=== PATIENT | female | born 1990 | race African-American/Black ===

== ENCOUNTER 2021-04-13 17:10 | Emergency (ER) | payer OTHER, SELFPAY ==
[2021-04-13] MEDS ORDERED: Ketorolac Tromethamine 30 MG/ML VIAL ONE (19:15)
[2021-04-13 19:19] LABS: #Eosinphils 0.1 10x3/uL (0.0-0.5); #Monocytes 0.9 10x3/uL (0.0-1.1); #Neutrophils 11.3 10x3/uL (1.5-8.4); %Basophils 0.2 % (0.0-2.0); %Eosinophils 0.5 % (0.0-6.0); %Lymphocytes 6.9 % (18.0-47.0); %Monocytes 6.9 % (0.0-10.0); %Neutrophils 85.1 % (40.0-75.0); Hemoglobin 11.1 g/dL (12.0-15.5); Mean Corpuscular HGB CONC 32.6 g/dL (32.0-36.0); Mean Corpuscular Hemoglobin 25.6 pg (27.0-33.0); Mean Corpuscular Volume 78.5 fl (81.6-98.3); Mean Platelet Volume 8.9 fl (7.4-10.4); Platelet Count 372 10x3/uL (150-450); Red Blood Cell (RBC) Count 4.33 10x6/uL (3.90-5.03); White Blood Cell (WBC) Count 13.3 10x3/uL (3.5-10.5)
[2021-04-13 19:31] LABS: BHCG - Serum Negative (NEGATIVE); Pregs Control Background? CLEAR/WHITE (CLR/WHITE); Pregs Control Bar Appear? YES (CONTROL BAR)
[2021-04-13 19:37] LABS: ALT (SGPT) 6 U/L (8-55); AST (SGOT) 16 U/L (5-34); Albumin 4.5 g/dL (3.5-5.0); Alkaline Phosphatase 53 U/L (40-110); Anion Gap 13 mmol/L (10-20); BUN (Urea Nitrogen) 6 mg/dL (7.0-18.7); Bilirubin, Total 0.4 mg/dL (0.2-1.2); Calc. Creatinine Clearance 0 mL/min (70-130); Calcium 9.3 mg/dL (7.8-10.44); Carbon Dioxide 22 mmol/L (22-29); Chloride 106 mmol/L (98-107); Glucose 99 mg/dL (70-105); Potassium 3.7 mmol/L (3.5-5.1); Protein, Total 8.5 g/dL (6.0-8.3); Sodium 137 mmol/L (136-145)
[2021-04-13] MEDS ORDERED: Magnesium Citrate 300 ML BOT ONE (20:40)
[2021-04-13] MEDS ORDERED: Fentanyl 100 MCG/2 ML VIAL ONE (22:12)
[2021-04-13] MEDS ORDERED: Midazolam HCl 2 mg/2 ml Vial ONE (22:52)
== END 2021-04-13 23:37 | disposition home or self-care (01) ==
LOC: CSHERS 17:10
DX: K59.00 Constipation, unspecified (principal)
CPT/HCPCS: 51701; 74177; 80053; 84703; 85025; 96374; 96375; J1885; J2250; J3010

== ENCOUNTER 2021-06-11 18:13 | Inpatient (IN) | payer SELFPAY ==
[2021-06-11 19:39] LABS: #Eosinphils 0.4 10x3/uL (0.0-0.5); #Monocytes 0.7 10x3/uL (0.0-1.1); #Neutrophils 3.4 10x3/uL (1.5-8.4); %Basophils 0.3 % (0.0-2.0); %Eosinophils 5.8 % (0.0-6.0); %Lymphocytes 32.6 % (18.0-47.0); %Neutrophils 51.2 % (40.0-75.0); Hemoglobin 11.4 g/dL (12.0-15.5); Mean Corpuscular HGB CONC 33.3 g/dL (32.0-36.0); Mean Corpuscular Hemoglobin 25.5 pg (27.0-33.0); Mean Corpuscular Volume 76.5 fl (81.6-98.3); Mean Platelet Volume 8.7 fl (7.4-10.4); Platelet Count 395 10x3/uL (150-450); RBC Distribution Width 17.1 % (11.5-14.5); Red Blood Cell (RBC) Count 4.47 10x6/uL (3.90-5.03); White Blood Cell (WBC) Count 6.7 10x3/uL (3.5-10.5)
[2021-06-11 19:53] LABS: BHCG - Serum Negative (NEGATIVE); Pregs Control Background? CLEAR/WHITE (CLR/WHITE); Pregs Control Bar Appear? YES (CONTROL BAR)
[2021-06-11 20:00] LABS: ALT (SGPT) 7 U/L (8-55); AST (SGOT) 14 U/L (5-34); Albumin 4.2 g/dL (3.5-5.0); Alkaline Phosphatase 53 U/L (40-110); Anion Gap 13 mmol/L (10-20); BUN (Urea Nitrogen) 6 mg/dL (7.0-18.7); Bilirubin, Total 0.3 mg/dL (0.2-1.2); Calc. Creatinine Clearance 0 mL/min (70-130); Calcium 8.9 mg/dL (7.8-10.44); Carbon Dioxide 22 mmol/L (22-29); Chloride 106 mmol/L (98-107); Globulin 3.8 g/dL (2.4-3.5); Glucose 93 mg/dL (70-105); Lipase 23 U/L (8-78); Potassium 3.3 mmol/L (3.5-5.1); Sodium 138 mmol/L (136-145)
[2021-06-11] MEDS ORDERED: GoLYTELY 4,000 ml Bottle PO SCH (21:15)
[2021-06-11] MEDS ORDERED: Fentanyl 100 MCG/2 ML VIAL ONE (21:24)
[2021-06-11] MEDS ORDERED: Ondansetron ODT 4 MG TAB ONE (23:17)
[2021-06-12 00:31] VITALS: BMI 23.4
[2021-06-12] MEDS ORDERED: Ondansetron PF 4 MG/2 ML Vial IVP PRN (00:48)
[2021-06-12 01:35] LABS: Magnesium 1.8 mg/dL (1.6-2.6)
[2021-06-12] MEDS: NS 0.9% w/ 40 MEQ KCL 1,000 ML IV SCH ×2 (02:10→19:48)
[2021-06-12] MEDS: Enoxaparin Sodium 40 MG/0.4 ML SYRINGE SC SCH (09:21)
[2021-06-12 11:52] LABS: #Eosinphils 0.4 10x3/uL (0.0-0.5); #Monocytes 0.5 10x3/uL (0.0-1.1); %Basophils 0.5 % (0.0-2.0); %Eosinophils 8.3 % (0.0-6.0); %Lymphocytes 31.4 % (18.0-47.0); %Monocytes 11.6 % (0.0-10.0); Mean Corpuscular HGB CONC 33.1 g/dL (32.0-36.0); Mean Corpuscular Hemoglobin 25.6 pg (27.0-33.0); Mean Corpuscular Volume 77.4 fl (81.6-98.3); Mean Platelet Volume 8.6 fl (7.4-10.4); Platelet Count 366 10x3/uL (150-450); RBC Distribution Width 17.2 % (11.5-14.5); White Blood Cell (WBC) Count 4.2 10x3/uL (3.5-10.5)
[2021-06-12 11:55] LABS: %Neutrophils 48.2 % (40.0-75.0)
[2021-06-12 12:10] LABS: Anion Gap 12 mmol/L (10-20); BUN (Urea Nitrogen) 4 mg/dL (7.0-18.7); Calc. Creatinine Clearance 104 mL/min (70-130); Calcium 8.5 mg/dL (7.8-10.44); Carbon Dioxide 19 mmol/L (22-29); Chloride 113 mmol/L (98-107); Glucose 91 mg/dL (70-105); Potassium 4.2 mmol/L (3.5-5.1); Sodium 140 mmol/L (136-145)
[2021-06-12] MEDS: Lactated Ringer's 1,000 ML IV SCH (18:57)
[2021-06-13] MEDS: Lactated Ringer's 1,000 ML IV SCH ×3 (02:58→16:04)
[2021-06-13 08:12] LABS: SARS-CoV-2 NAA Rapid Test Not Detected (NotDetected)
[2021-06-13] MEDS: Enoxaparin Sodium 40 MG/0.4 ML SYRINGE SC SCH (09:37)
[2021-06-13] MEDS ORDERED: PROPOFOL 60 ML ONE (12:18)
[2021-06-13] MEDS ORDERED: Midazolam HCl 2 mg/2 ml Vial ONE (12:18)
[2021-06-13] MEDS ORDERED: Fleet Enema 133 ML BOT FS SCH (12:45)
[2021-06-13] MEDS ORDERED: PROPOFOL 20 ML ONE (12:56)
[2021-06-13] MEDS ORDERED: Polyethylene Glycol 3350 17 GM Packet PO SCH (15:00)
[2021-06-13 16:47] VITALS: BP 114/76; TEMP 101
[2021-06-13] MEDS ORDERED: Acetaminophen 325 MG TAB PO PRN (19:37)
[2021-06-14] MEDS ORDERED: Magnesium Citrate 300 ML BOT PO SCH (09:00)
== END 2021-06-13 20:15 | disposition home or self-care (01) | DRG 390 ==
LOC: CSHERS 18:13 → CSHTELE 06-12 00:17
PROVIDERS: ADMIT Hospitalist; ATTEND Nurse Practitioner Family
PROC: 0DJD8ZZ Inspection of Lower Intestinal Tract, Via Natural or Artificial Opening Endoscopic (ICD-10-PCS; principal; 2021-06-13)
DX: K56.41 Fecal impaction (principal); K59.9 Functional intestinal disorder, unspecified; E87.6 Hypokalemia; Z98.51 Tubal ligation status; Z79.899 Other long term (current) drug therapy; Z79.2 Long term (current) use of antibiotics
CPT/HCPCS: 36415; 71045; 74022; 74177; 80048; 80053; 83690; 83735; 84703; 85025; 96374; J2250; J2704; J3010; J3480; J7120; Q0162; U0002

== ENCOUNTER 2021-09-12 20:13 | Emergency (ER) | payer SELFPAY | END 2021-09-12 20:46 | disposition home or self-care (01) | LOC: CSHERS 20:13 | DX: K59.00 Constipation, unspecified (principal); R33.9 Retention of urine, unspecified | CPT/HCPCS: 99283 ==

== ENCOUNTER 2024-12-23 08:36 | Observation (INO) | payer OTHER, SELFPAY ==
[2024-12-23] MEDS ORDERED: Iopamidol 300 61% 100 ML VIAL FS ONE (09:07)
[2024-12-23] MEDS ORDERED: Mineral Oil ENEMA ONE (11:05)
[2024-12-23 11:10] LABS: #Basophils Less than 0.03 10x3/uL (0.0-0.2); #Eosinophils 0.06 10x3/uL (0.0-0.5); #Monocytes 0.45 10x3/uL (0.0-1.1); #Neutrophils 8.37 10x3/uL (1.5-8.4); %Basophils 0.1 % (0.0-2.0); %Eosinophils 0.6 % (0.0-6.0); %Lymphocytes 8.5 % (18.0-47.0); %Monocytes 4.6 % (0.0-10.0); %Neutrophils 85.9 % (40.0-75.0); Hematocrit 35.0 % (34.9-44.5); Hemoglobin 11.5 g/dL (12.0-15.5); Mean Corpuscular Hemoglobin 26.3 pg (27.0-33.0); Mean Corpuscular Volume 80.1 fL (81.6-98.3); Platelet Count 401 10x3/uL (150-450); Red Blood Cell (RBC) Count 4.37 10x6/uL (3.90-5.03); White Blood Cell (WBC) Count 9.75 10x3/uL (3.5-10.5)
[2024-12-23 11:22] LABS: BHCG - Serum Negative (NEGATIVE); Pregs Control Background? CLEAR/WHITE (CLR/WHITE); Pregs Control Bar Appear? YES (CONTROL BAR)
[2024-12-23 11:29] LABS: ALT (SGPT) 7 U/L (Less than 34); AST (SGOT) 21 U/L (11-34); Albumin 4.1 g/dL (3.1-4.5); Alkaline Phosphatase 55 U/L (40-110); Anion Gap 14 mmol/L (10-20); BUN (Urea Nitrogen) 6 mg/dL (7.0-18.7); Bilirubin, Total 0.4 mg/dL (0.3-1.2); Calc. Creatinine Clearance 0 mL/min (70-130); Calcium 8.8 mg/dL (7.8-10.44); Carbon Dioxide 21 mmol/L (22-29); Chloride 107 mmol/L (98-107); Globulin 4.3 g/dL (2.4-3.5); Glucose 121 mg/dL (70-105); Potassium 3.6 mmol/L (3.5-5.1); Sodium 138 mmol/L (136-145)
[2024-12-23] MEDS ORDERED: Melatonin 3 MG TAB PO PRN (16:58)
[2024-12-23] MEDS ORDERED: Acetaminophen 325 MG TAB PO PRN (16:58)
[2024-12-23] MEDS ORDERED: Ondansetron PF 4 MG/2 ML Vial IVP PRN (16:58)
[2024-12-23] MEDS ORDERED: Electrolyte Replacement Protocol 1 EACH FS PRN (17:00)
[2024-12-23] MEDS: GoLYTELY 4,000 ml Bottle PO SCH (17:36)
[2024-12-23] MEDS: Bisacodyl 10 MG SUPP PR SCH (17:36)
[2024-12-23] MEDS: Mineral Oil ENEMA PR SCH (18:06)
[2024-12-24 03:47] LABS: #Basophils 0.03 10x3/uL (0.0-0.2); #Eosinophils 0.25 10x3/uL (0.0-0.5); #Monocytes 0.68 10x3/uL (0.0-1.1); #Neutrophils 4.29 10x3/uL (1.5-8.4); %Basophils 0.4 % (0.0-2.0); %Eosinophils 3.7 % (0.0-6.0); %Lymphocytes 22.7 % (18.0-47.0); %Monocytes 10.0 % (0.0-10.0); %Neutrophils 62.9 % (40.0-75.0); Hematocrit 32.4 % (34.9-44.5); Hemoglobin 10.7 g/dL (12.0-15.5); Mean Corpuscular Hemoglobin 26.3 pg (27.0-33.0); Mean Corpuscular Volume 79.6 fL (81.6-98.3); Platelet Count 359 10x3/uL (150-450); Red Blood Cell (RBC) Count 4.07 10x6/uL (3.90-5.03); White Blood Cell (WBC) Count 6.82 10x3/uL (3.5-10.5)
[2024-12-24 04:04] LABS: Anion Gap 11 mmol/L (10-20); BUN (Urea Nitrogen) 6 mg/dL (7.0-18.7); Calc. Creatinine Clearance 137 mL/min (70-130); Calcium 8.1 mg/dL (7.8-10.44); Carbon Dioxide 19 mmol/L (22-29); Chloride 111 mmol/L (98-107); Glucose 87 mg/dL (70-105); Magnesium 2.1 mg/dL (1.6-2.6); Potassium 3.3 mmol/L (3.5-5.1); Sodium 138 mmol/L (136-145)
[2024-12-24 04:37] LABS: Iron 66 ug/dL (50-170); Iron Binding Capacity, Total 345 mcg/dL (265-497)
[2024-12-24] MEDS: Enoxaparin 40 MG (0.4 mL) SYRINGE SC SCH (09:02)
[2024-12-24] MEDS ORDERED: PROPOFOL 20 ML ONE ×2 (14:18→14:32)
[2024-12-24] MEDS ORDERED: GoLYTELY 4,000 ml Bottle PO SCH (15:16)
[2024-12-24 17:08] VITALS: BP 104/71; TEMP 97.7
== END 2024-12-24 17:10 | disposition home or self-care (01) ==
LOC: CSHERS 08:36 → CSHTELE 15:55
PROVIDERS: ADMIT Internal Medicine; ATTEND Internal Medicine
PROC: 0DCP7ZZ Extirpation of Matter from Rectum, Via Natural or Artificial Opening (ICD-10-PCS; principal; 2024-12-23)
DX: K56.41 Fecal impaction (principal); F50.83 Pica in adults; Z68.30 Body mass index [BMI] 30.0-30.9, adult
CPT/HCPCS: 36415; 74177; 80048; 80053; 82728; 83540; 83550; 83735; 84100; 84703; 85025; 96361; 96374; 96375; G0378; J2250; J2270; J2704; Q9967